=== PATIENT | female | born 1990 | race Caucasian/White ===

== ENCOUNTER 2018-05-12 02:53 | Emergency (ER) | payer MEDICAID ==
[~2018-05-12] VITALS: Ht 157.5 cm; Wt 76.3 kg
[2018-05-12] MEDS ORDERED: ondansetron 4mg rapidly disintigrating tab PO ONE (03:10)
[2018-05-12] MEDS ORDERED: acetaminophen 325mg tablet PO ONE (03:35)
[2018-05-12] MEDS ORDERED: morphine 4 MG/ML inj SYRINge IV ONE (03:35)
[2018-05-12] MEDS ORDERED: proCHLORperazine 10 MG/2 ml inj IV ONE (03:35)
[2018-05-12] MEDS ORDERED: normal saline 1000ml 1,000 ML IV ONE ×2 (03:35→04:45)
[2018-05-12] MEDS ORDERED: dicyclomine 10 MG capsule PO ONE (03:35)
[2018-05-12 05:21] LABS: URINE HCG NEGATIVE (NEG)
[2018-05-12 05:57] LABS: CLARITY,URINE CLEAR (Clear); COLOR,URINE YELLOW (Yellow); GLUCOSE, URINE NEGATIVE (Neg); KETONES,URINE NEGATIVE (Neg); LEUKOCYTE ESTERASE ,URINE NEGATIVE (Neg); NITRITES, URINE NEGATIVE (Neg); OCCULT BLOOD,URINE NEGATIVE (Neg); PH,URINE 6.5 (4.8-8.0); PROTEIN,URINE NEGATIVE (Neg); UA COLLECTION TYPE STRAIGHT CATH; UROBILINOGEN,URINE 0.2 E.U/dL (0.2-1.0)
[2018-05-12] MEDS ORDERED: DICY10CA88 PO (06:05)
[2018-05-12 06:19] VITALS: BP 94/52
== END 2018-05-12 06:21 | disposition home or self-care (01) ==
LOC: ER 02:54
DX: N94.6 Dysmenorrhea, unspecified (principal); R10.30 Lower abdominal pain, unspecified; R11.2 Nausea with vomiting, unspecified; R19.7 Diarrhea, unspecified; Z88.6 Allergy status to analgesic agent
CPT/HCPCS: 81003; 81025; 96361; 96374; 96375; 99284; J0780; J2270; J7030

== ENCOUNTER 2024-01-17 10:00 | Outpatient (CLI) | payer MEDICAID ==
[~2024-01-17 10:00] MED LIST: DICY10CA88 PO
== END 2024-01-17 23:59 | disposition home or self-care (01) ==
LOC: RAD 10:00
PROVIDERS: ATTEND Nurse Practitioner Family
DX: R56.9 Unspecified convulsions (principal); R20.2 Paresthesia of skin; R51.9 Headache, unspecified
CPT/HCPCS: 95816